=== PATIENT | male | born 1995 | race Two or more races ===

== ENCOUNTER 2018-04-18 17:04 | Emergency (ER) | payer MEDICAID ==
[~2018-04-18] VITALS: Ht 177.8 cm; Wt 64.8 kg
[2018-04-18] MEDS ORDERED: KETOROLAC 30 MG/1 ML IM ONE (17:30)
[2018-04-18] MEDS ORDERED: KETOROLAC 30 MG/1 ML ONE (17:35)
[2018-04-18 18:15] LABS: MICROSCOPIC AUTO
[2018-04-18 18:17] LABS: CULTURE INDICATED? NO
[2018-04-18 19:21] VITALS: BP 128/76
== END 2018-04-18 19:21 | disposition home or self-care (01) ==
LOC: ED 17:20
DX: M54.16 Radiculopathy, lumbar region (principal)
CPT/HCPCS: 72110; 74176; 81001; 96372; 99285; J1885

== ENCOUNTER 2019-06-29 14:49 | Emergency (ER) | payer MEDICAID, OTHER ==
[~2019-06-29] VITALS: Ht 180.3 cm; Wt 64.0 kg
[2019-06-29 16:12] LABS: BASOPHILS # (AUTO) 0.03 x10^3/uL (0-0.1); BASOPHILS % (AUTO) 1 % (0-1); EOSINOPHILS # (AUTO) 0.02 x10^3/uL (0-0.4); EOSINOPHILS % (AUTO) 0 % (1-7); LYMPHOCYTES # (AUTO) 1.11 x10^3/uL (1-3.4); LYMPHOCYTES % (AUTO) 15 % (22-44); MD NO; MEAN CORPUSCULAR HEMOGLOBIN 32.2 pg (27.5-34.5); MEAN CORPUSCULAR HGB CONC 34.3 g/dL (33.2-36.2); MEAN PLATELET VOLUME 8.7 fL (7.4-10.4); MONOCYTES # (AUTO) 0.42 x10^3/uL (0.2-0.8); MONOCYTES % (AUTO) 6 % (2-9); NEUTROPHILS # (AUTO) 5.61 x10^3/uL (1.8-6.8); NEUTROPHILS % (AUTO) 78 % (42-75); PLATELET COUNT 181 x10^3/uL (130-400); RED BLOOD COUNT 5.47 x10^6/uL (4.38-5.82); RED CELL DISTRIBUTION WIDTH 13.4 % (9.4-14.8)
[2019-06-29 16:20] LABS: ANION GAP 6 mmol/L (5-15); CALCIUM 8.8 mg/dL (8.5-10.1); CHLORIDE 106 mmol/L (98-107)
[2019-06-29] MEDS ORDERED: SODIUM CHLORIDE 0.9% 1,000ML IVBOLUS ONE (16:30)
--- NOTE | 2019-06-29 16:40 | NUR ---
US AT BS. CALL LIGHT WITHIN REACH. URINAL PROVIDED FOR UA.
--- NOTE | 2019-06-29 17:15 | NUR ---
IV PLACED, NS BOLUS INFUSING. URINE COLLECTED/SENT TO LAB. CALL LIGHT WITHIN REACH.
[2019-06-29 17:25] LABS: CULTURE INDICATED? NO; MICROSCOPIC AUTO
[2019-06-29 17:33] LABS: AMPHETAMINE SCREEN, URINE Negative (Negative); BARBITURATE SCREEN, URINE Negative (Negative); BENZODIAZEPINE SCREEN, URINE Negative (Negative); CANNABINOID SCREEN, URINE Negative (Negative); COCAINE SCREEN, URINE Negative (Negative); METHADONE SCREEN, URINE Negative (Negative); OPIATE SCREEN, URINE Negative (Negative)
--- NOTE | 2019-06-29 18:04 | NUR ---
CALL TO US, INQUIRING ON US READ
[2019-06-29 18:43] VITALS: BP 124/73
--- NOTE | 2019-06-29 18:43 | NUR ---
PT WITHOUT N/V OR ABD PAIN-ASX AT THIS TIME. US READ BACK, PT FOR RECHECK. VSS/UPDATED IN COMPUTER.
== END 2019-06-29 19:16 | disposition home or self-care (01) ==
LOC: ED 18:51
DX: N17.9 Acute kidney failure, unspecified (principal)
CPT/HCPCS: 36415; 76770; 80048; 80307; 81001; 85025; 99284; J7030

== ENCOUNTER 2019-07-13 05:50 | Day surgery (SDC) | payer OTHER ==
[~2019-07-13] VITALS: Ht 180.3 cm; Wt 63.0 kg
[2019-07-13 06:39] VITALS: BP 126/83
[2019-07-13] MEDS ORDERED: SODIUM CHLORIDE 0.9% 1,000 ML IV SCH (06:41)
[2019-07-13] MEDS ORDERED: NONE PER PT (06:58)
[2019-07-13 07:12] LABS: INTERNATIONAL NORMALIZED RATIO 1.04 (0.93-1.1)
[2019-07-13] MEDS ORDERED: NALOXONE 1 MG/ML, 2ML ONE (08:14)
[2019-07-13] MEDS ORDERED: FLUMAZENIL 0.1 MG/1 ML, 5ML ONE (08:14)
[2019-07-13] MEDS ORDERED: FENTANYL PF 100 MCG/2ML ONE (08:14)
[2019-07-13] MEDS ORDERED: MIDAZOLAM 1 MG/ML, 5ML ONE (08:14)
== END 2019-07-13 11:10 | disposition home or self-care (01) ==
LOC: OUT 05:50
PROVIDERS: ATTEND Surgery
DX: R80.9 Proteinuria, unspecified (principal); N18.2 Chronic kidney disease, stage 2 (mild); N17.9 Acute kidney failure, unspecified
CPT/HCPCS: 36415; 50200; 77012; 85610; 88300; 99156; 99157; J2250; J3010; J7030; J2310

== ENCOUNTER 2019-07-22 11:32 | Emergency (ER) | payer OTHER ==
[~2019-07-22] VITALS: Ht 180.3 cm; Wt 63.0 kg
[~2019-07-22 11:32] MED LIST: NONE PER PT
[2019-07-22 11:37] VITALS: BP 120/78
--- NOTE | 2019-07-22 13:29 | NUR ---
MEDICAL ADMINISTRATOR: PT TO ROOM FROM [facility].
--- NOTE | 2019-07-22 13:37 | NUR ---
PT C/O PERIUMBILICAL ABD PAIN STARTING THURSDAY. PT HAD KIDNEY BIOPSY LAST THURSDAY. PT HAS BEEN ON LIGHT DUTY AT WORK. DENIES N/V/D. CONNECTED TO MONITORING. CALL LIGHT IN REACH.
--- NOTE | 2019-07-22 14:19 | NUR ---
PT AMBULATED TO RESTROOM WITH STEADY GAIT TO PROVIDE URINE SAMPLE. UA COLLECTED AND SENT TO LAB. LABS DRAWN BY LAB.
[2019-07-22 14:22] LABS: BASOPHILS # (AUTO) 0.02 x10^3/uL (0-0.1); BASOPHILS % (AUTO) 0 % (0-1); EOSINOPHILS # (AUTO) 0.05 x10^3/uL (0-0.4); EOSINOPHILS % (AUTO) 1 % (1-7); LYMPHOCYTES # (AUTO) 1.04 x10^3/uL (1-3.4); LYMPHOCYTES % (AUTO) 13 % (22-44); MD NO; MEAN CORPUSCULAR HEMOGLOBIN 31.7 pg (27.5-34.5); MEAN CORPUSCULAR HGB CONC 33.9 g/dL (33.2-36.2); MEAN CORPUSCULAR VOLUME 93.4 fL (81-97); MEAN PLATELET VOLUME 8.2 fL (7.4-10.4); MONOCYTES # (AUTO) 0.47 x10^3/uL (0.2-0.8); MONOCYTES % (AUTO) 6 % (2-9); NEUTROPHILS # (AUTO) 6.18 x10^3/uL (1.8-6.8); NEUTROPHILS % (AUTO) 80 % (42-75); PLATELET COUNT 206 x10^3/uL (130-400); RED BLOOD COUNT 5.57 x10^6/uL (4.38-5.82); RED CELL DISTRIBUTION WIDTH 13.1 % (9.4-14.8)
[2019-07-22 14:28] LABS: CULTURE INDICATED? NO; MICROSCOPIC AUTO
[2019-07-22 14:30] LABS: ALANINE AMINOTRANSFERASE 24 U/L (12-78); ALBUMIN 3.9 g/dL (3.4-5.0); ANION GAP 4 mmol/L (5-15); CALCIUM 9.6 mg/dL (8.5-10.1); CHLORIDE 103 mmol/L (98-107); CREATININE 1.34 mg/dL (0.7-1.3)
[2019-07-22] MEDS ORDERED: SODIUM CHLORIDE FLUSH 10ML SYR IVF ONE (14:30)
[2019-07-22 14:33] LABS: ALKALINE PHOSPHATASE 70 U/L (45-117); BILIRUBIN,TOTAL 0.8 mg/dL (0.2-1.0); TOTAL PROTEIN 7.5 g/dL (6.4-8.2)
--- NOTE | 2019-07-22 14:36 | NUR ---
ALL RESULTS ARE BACK AT THIS TIME. CHART UP FOR RECHECK.
--- NOTE | 2019-07-22 14:40 | NUR ---
MD AT BEDSIDE TO UPDATE PT ON POC.
== END 2019-07-22 15:10 | disposition home or self-care (01) ==
LOC: ED 14:44
DX: R10.84 Generalized abdominal pain (principal); R80.9 Proteinuria, unspecified
CPT/HCPCS: 36415; 74021; 80053; 81001; 85025; 99284

== ENCOUNTER 2019-08-11 11:28 | Emergency (ER) | payer OTHER ==
[~2019-08-11] VITALS: Ht 180.3 cm; Wt 63.1 kg
[2019-08-11 12:32] LABS: BASOPHILS # (AUTO) 0.01 x10^3/uL (0-0.1); BASOPHILS % (AUTO) 0 % (0-1); EOSINOPHILS # (AUTO) 0.03 x10^3/uL (0-0.4); EOSINOPHILS % (AUTO) 1 % (1-7); LYMPHOCYTES # (AUTO) 1.25 x10^3/uL (1-3.4); LYMPHOCYTES % (AUTO) 24 % (22-44); MD NO; MEAN CORPUSCULAR HEMOGLOBIN 31.6 pg (27.5-34.5); MEAN CORPUSCULAR HGB CONC 33.8 g/dL (33.2-36.2); MEAN CORPUSCULAR VOLUME 93.4 fL (81-97); MEAN PLATELET VOLUME 8.4 fL (7.4-10.4); MONOCYTES # (AUTO) 0.36 x10^3/uL (0.2-0.8); MONOCYTES % (AUTO) 7 % (2-9); NEUTROPHILS # (AUTO) 3.52 x10^3/uL (1.8-6.8); NEUTROPHILS % (AUTO) 68 % (42-75); PLATELET COUNT 189 x10^3/uL (130-400); RED BLOOD COUNT 5.54 x10^6/uL (4.38-5.82); RED CELL DISTRIBUTION WIDTH 13.6 % (9.4-14.8)
[2019-08-11 12:41] LABS: ALBUMIN 3.7 g/dL (3.4-5.0); ANION GAP 6 mmol/L (5-15); CALCIUM 9.1 mg/dL (8.5-10.1); CHLORIDE 106 mmol/L (98-107); CREATININE 1.37 mg/dL (0.7-1.3)
[2019-08-11 13:15] VITALS: BP 127/73
--- NOTE | 2019-08-11 13:17 | NUR ---
ERP at bedside to discuss POC s/p discharge. Pt encouraged to increase water intake and follow up w/ PCP as needed.
--- NOTE | 2019-08-11 13:43 | NUR ---
Reviewed discharge instructions w/ pt, verbalized understanding to information provided including increasing water intake and follow up w/ PCP as needed, denied questions/concerns. Pt ambulated from ED.
== END 2019-08-11 13:46 | disposition home or self-care (01) ==
LOC: ED 13:35
DX: N28.9 Disorder of kidney and ureter, unspecified (principal); R51 Headache; R11.0 Nausea; R42 Dizziness and giddiness; R53.83 Other fatigue; H53.149 Visual discomfort, unspecified; Z90.89 Acquired absence of other organs
CPT/HCPCS: 36415; 80048; 82040; 85025; 99283

== ENCOUNTER 2019-10-30 14:36 | Emergency (ER) | payer BC, OTHER ==
[~2019-10-30] VITALS: Ht 177.8 cm; Wt 63.1 kg
--- NOTE | 2019-10-30 15:11 | NUR ---
PT CAME IN CO OF HEADACHES. SAYS "MY HEAD AND NECK FEELING TINGLY. LOUD NOISES AND BRIGHT LIGHTS ARE IRRITATING. I WENT TO MY PCP AND HE SENT ME HOME WITH MIGRAIN MEDS THAT DONT SEEM TO HELP". PT DENIES HITTING HEAD, DENIES TAKING BLOOD THINNERS. PT IS RESTING IN GURNEY CONNECTED TO MONITORING EQUIPMENT.
[2019-10-30] MEDS ORDERED: MIGRAINE MED (15:33)
[2019-10-30 15:43] VITALS: BP 131/70
--- NOTE | 2019-10-30 15:44 | NUR ---
PT RESTING IN [facility]. VSS. NAD
[2019-10-30] MEDS ORDERED: ACETAMINOPHEN 500 MG TABLET PO ONE (16:00)
[2019-10-30] MEDS ORDERED: ACETAMINOPHEN 500 MG TABLET ONE (16:07)
[2019-10-30 16:10] LABS: BASOPHILS # (AUTO) 0.02 x10^3/uL (0-0.1); BASOPHILS % (AUTO) 0 % (0-1); EOSINOPHILS # (AUTO) 0.03 x10^3/uL (0-0.4); EOSINOPHILS % (AUTO) 0 % (1-7); LYMPHOCYTES # (AUTO) 0.81 x10^3/uL (1-3.4); LYMPHOCYTES % (AUTO) 10 % (22-44); MD NO; MEAN CORPUSCULAR HEMOGLOBIN 31.5 pg (27.5-34.5); MEAN CORPUSCULAR HGB CONC 33.7 g/dL (33.2-36.2); MEAN CORPUSCULAR VOLUME 93.5 fL (81-97); MEAN PLATELET VOLUME 8.4 fL (7.4-10.4); MONOCYTES # (AUTO) 0.45 x10^3/uL (0.2-0.8); MONOCYTES % (AUTO) 6 % (2-9); NEUTROPHILS # (AUTO) 6.78 x10^3/uL (1.8-6.8); NEUTROPHILS % (AUTO) 84 % (42-75); PLATELET COUNT 177 x10^3/uL (130-400); RED BLOOD COUNT 5.71 x10^6/uL (4.38-5.82); RED CELL DISTRIBUTION WIDTH 13.3 % (9.4-14.8)
--- NOTE | 2019-10-30 16:16 | NUR ---
PT REFUSED TYENOL. SAID HE TOOK SOME MEDICINE EARLIER FOR HIS STARKEY.
[2019-10-30 16:19] LABS: ALBUMIN 4.2 g/dL (3.4-5.0); ANION GAP 4 mmol/L (5-15); CALCIUM 9.6 mg/dL (8.5-10.1); CHLORIDE 107 mmol/L (98-107); CREATININE 1.49 mg/dL (0.7-1.3)
== END 2019-10-30 17:24 | disposition home or self-care (01) ==
LOC: ED 15:30
DX: G44.229 Chronic tension-type headache, not intractable (principal); N18.2 Chronic kidney disease, stage 2 (mild); R00.0 Tachycardia, unspecified
CPT/HCPCS: 36415; 70450; 80048; 82040; 85025; 93005; 99285